=== PATIENT | male | born 1955 | race Hispanic/Latino ===

== ENCOUNTER 2016-11-25 09:30 | Emergency (ER) | payer OTHER ==
[2016-11-25 09:33] VITALS: BMI 30.2
[2016-11-25 09:37] VITALS: RESP 18; TEMP 97.6
--- NOTE | 2016-11-25 09:50 | ED PDOC ---
Arrival/HPI - General Historian: Patient - History of Present Illness Symptom Onset: Gradual Symptom Course: Worsening Quality: Stabbing Activities at Onset: Rest <Lora Suresh - Last Filed: 11/25/16 11:21> <Grant Nunez - Last Filed: 11/25/16 11:37> - General Chief Complaint: Back Pain Time Seen by Provider: 11/25/16 09:49 - History of Present Illness Narrative History of Present Illness (Text): 11/25/16 09:52 61 yo M w h/o right-sided obstructive uropathy February 2013, CAD s/p stent on plavix, HTN, HLD presents with worsening 2 week h/o R flank pain initially started in lower thoracics now radiating to RLQ. Patient admits to stabbing, 6/ 10 intermittent right mid-back pain onset 2 weeks ago patient initially thought was a pulled muscle. For the past 2 days, patient has been experiencing radiation of the pain into the right pelvis/RLQ. Movement and straight posturing worsens the pain. Patient tried Motrin at home with minimal pain relief. Denies hematuria, dysuria, difficulty urinating, n/v/d/c, fevers, chills , CP, SOB, rashes, edema. (Lora Suresh) Past Medical History - Provider Review Nursing Documentation Reviewed: Yes - Travel History Have you recently traveled outside [place] w/in the past 3 mons?: No - Past History Past History: No Previous - Infectious Disease Hx of Infectious Diseases: None - Cardiac Hx [place]: Yes Hx Hypertension: Yes Other/Comment: cardiac stent 1 - Pulmonary Hx Respiratory Disorders: Yes Other/Comment: SLEEP APNEA - Neurological Hx Neurological Disorder: No - HEENT Hx HEENT Disorder: No - Renal Hx Renal Disorder: No - Endocrine/Metabolic Hx Endocrine Disorders: No - Hematological/Oncological Hx Blood Disorders: No - Integumentary Hx Dermatological Disorder: No - Musculoskeletal/Rheumatological Hx Falls: No Hx Gout: Yes - Gastrointestinal Hx Gastrointestinal Disorders: No - Genitourinary/Gynecological Hx Genitourinary Disorders: No - Psychiatric Hx Substance Use: No - Surgical History Hx Cardiac Catheterization: Yes Hx Coronary Stent: Yes (2) - Anesthesia Hx Anesthesia: Yes Hx Anesthesia Reactions: No Hx Malignant Hyperthermia: No - Suicidal Assessment Feels Threatened In Home Enviroment: No <Lora Suresh - Last Filed: 11/25/16 11:21> Family/Social History - Physician Review Nursing Documentation Reviewed: Yes Family/Social History: Hypertension Smoking Status: Never Smoked Hx Alcohol Use: No (wine occassionally) Hx Substance Use: No Hx Substance Use Treatment: No <GilbertellaLora - Last Filed: 11/25/16 11:21> Allergies/Home Meds <GilbertkirajamshidLora - Last Filed: 11/25/16 11:21> <Grant Nunez - Last Filed: 11/25/16 11:37> Allergies/Adverse Reactions: Allergies No Known Allergies Allergy (Verified 08/22/16 08:45) Home Medications: Home Meds Medication Instructions Recorded Confirmed Lisinopril/Hydrochlorothiazide 1 tab PO DAILY 07/12/14 11/25/16 [Lisinopril-Hctz 20-25 mg Tab] Aspirin [Ecotrin] 81 mg PO DAILY 08/22/16 11/25/16 Atorvastatin [Lipitor] 20 mg PO DAILY 08/22/16 11/25/16 Clopidogrel [Plavix] 75 mg PO DAILY 08/22/16 11/25/16 Metoprolol Tartrate [Lopressor] 25 mg PO DAILY 08/22/16 11/25/16 Allopurinol [Zyloprim] 300 mg PO DAILY 11/25/16 11/25/16 Colchicine [Colcrys] 0.6 mg PO DAILY 11/25/16 11/25/16 Review of Systems - Physician Review All systems were reviewed & negative as marked: Yes - Review of Systems Constitutional: Normal. absent: Fatigue, Fevers Eyes: absent: Vision Changes, Photophobia ENT: Normal Respiratory: absent: SOB, Cough, Sputum Cardiovascular: Normal. absent: Chest Pain, Palpitations, Edema, Calf Pain, MOORE Gastrointestinal: Abdominal Pain (RLQ into right pelvis). absent: Constipation , Diarrhea, Nausea, Vomiting, Appetite Changes, Hematochezia, Hematemesis Genitourinary Male: absent: Dysuria, Frequency, Hematuria, Urinary Output Changes Musculoskeletal: Back Pain (right mid-back ). absent: Neck Pain Skin: absent: Rash, Skin Lesions Neurological: absent: Headache, Dizziness Endocrine: absent: Diaphoresis, Polyuria Psychiatric: absent: Anxiety, Depression <Lora Suresh - Last Filed: 11/25/16 11:21> Physical Exam Vital Signs Reviewed: Yes Temperature: Afebrile Blood Pressure: Hypertensive Pulse: Regular Respiratory Rate: Normal Appearance: Positive for: Well-Appearing, Non-Toxic, Uncomfortable Pain Distress: None Mental Status: Positive for: Alert and Oriented X 3 - Systems Exam Head: Present: Atraumatic, Normocephalic Pupils: Present: PERRL Extroacular Muscles: Present: EOMI Conjunctiva: Present: Normal. No: Injected, Icteric Ears: Present: Normal Mouth: Present: Moist Mucous Membranes Nose (External): Present: Atraumatic Nose (Internal): Present: Normal Inspection Neck: Present: Normal Range of Motion. No: Meningeal Signs, JVD Respiratory/Chest: Present: Clear to Auscultation, Good Air Exchange. No: Respiratory Distress, Accessory Muscle Use, Wheezes, Rales, Rhonchi Cardiovascular: Present: Regular Rate and Rhythm, Normal S1, S2. No: Murmurs Abdomen: Present: Tenderness. No: Distention, Normal Bowel Sounds, Peritoneal Signs, Rebound, Guarding Back: Present: Other (right lower thoracics musle spasm). No: CVA Tenderness, Paraspinal Tenderness Upper Extremity: Present: Normal Inspection. No: Cyanosis, Edema Lower Extremity: Present: Normal Inspection. No: Edema, CALF TENDERNESS Neurological: Present: GCS=15, CN II-XII Intact, Speech Normal Skin: Present: Warm, Normal Color. No: Rashes Psychiatric: Present: Alert, Oriented x 3, Normal Insight, Normal Concentration <Lora Suresh - Last Filed: 11/25/16 11:21> Vital Signs Temp Pulse Resp BP Pulse Ox 11/25/16 11:03 57 L 18 122/79 96 11/25/16 09:31 97.6 F 69 18 150/101 H 99 Medical Decision Making Re-evaluation Time: 11:18 Reassessment Condition: Re-examined, Improved - EKG Interpretation Interpreted by ED Physician: Yes <Lora Suresh - Last Filed: 11/25/16 11:21> <Grant Nunez - Last Filed: 11/25/16 11:37> ED Course and Treatment: 11/25/16 10:30 61 yo M w h/o HTN, HLD, CAD, nephrolithiasis presents with right flank pain radiating into right pelvis. IVF, toradol, CT A/P without contrast to r/o pyelo vs nephrolithiasis, NS bolus, NS @100cc/hr. Labs, UA and culture sent. 11/25/16 10:48 K 3.3. 20meq KCl PO x1. 11/25/16 11:16 Patient re-examined. States he feels a little better but still has right mid- back pain. 4mg IV morphine x1. IVF running. BP improved, 122/79. 11/25/16 11:23 CT findings discussed with patient. Patient states he feels much better, pain imporved. All questions answered. chano Castro, instructed to f/u with PMD and urology. (Lora Suresh) A 61 year old male with right flank pain. In agreement with resident note, which includes further HPI details. Patient was seen and evaluated with resident , came up with plan and treatment together. EKG shows NSR at [address]-segment elevations, normal intervals. Interpreted by me. 11/25/16 11:[address] negative for obstructing stones. Most likely either a recently passed stone or muscleskeletal. Patient will f/u with his primary care doctor and a urologist Dr. Seth. Advised to return to the ED with any worsening symptoms or concerns. (Grant Nunez) - Lab Interpretations Lab Results: 11/25/16 10:27 11/25/16 10:27 Lab Results 11/25/16 10:27: WBC 5.1, RBC 4.96, Hgb 15.6, Hct 43.3, MCV 87.3, MCH 31.5, MCHC 36.0, RDW 13.9, Plt Count 282, MPV 9.9, Gran % 40.5 L, Lymph % (Auto) 51.7 H, Nolan % (Auto) 6.0, Eos % (Auto) 0.4 L, Baso % (Auto) 1.4, Gran # 2.08, Lymph # 2.7, Nolan # 0.3, Eos # 0.0, Baso # 0.07, Sodium 139, Potassium 3.3 L, Chloride 99, Carbon Dioxide 29, Anion Gap 14, BUN 23 H, Creatinine 1.0, Est GFR ( Amer) > 60, Est GFR (Non-Af Amer) > 60, Random Glucose 94, Calcium 9.8, Total Bilirubin 1.0, AST 47, ALT 56, Alkaline Phosphatase 53, Total Protein 8.4 H, Albumin 4.7, Globulin 3.6, Albumin/Globulin Ratio 1.3, Urine Color Yellow, Urine Appearance Clear, Urine pH 5.5, Ur Specific [place] 1.020, Urine Protein Negative, Urine Glucose (UA) Negative, Urine Ketones Negative, Urine Blood Negative, Urine Nitrate Negative, Urine Bilirubin Negative, Urine Urobilinogen 0.2, Ur Leukocyte Esterase Negative - RAD Interpretation Narrative RAD Interpretations (Text): 11/25/16 11:21 CT A/P without contrast shows multiple tiny BL nonobstructing renal calculi. Largest calculus lower pole right kidney measures 4mm. The remaining calculi measure 2-3mm. No hydronephrosis. No renal mass. (Lora Suresh) Radiology Orders: 11/25/16 10:11 ABD & PELVIS W/O PO OR IV CONT [CT] Stat - EKG Interpretation EKG Interpretation (Text): 11/25/16 09:50 NSR 67 bpm, no ST/T wave abnormalities, no interval delays. (Lora Suresh) - Medication Orders Current Medication Orders: Sodium Chloride (Sodium Chloride 0.9%) 1,000 mls @ 100 mls/hr IV .Q10H PEBBLES Discontinued Medications Sodium Chloride (Sodium Chloride 0.9%) 1,000 mls @ 999 mls/hr IV .Q1H1M STA Stop: 11/25/16 11:10 Last Admin: 11/25/16 10:29 Dose: 999 MLS/HR eMAR Start Stop Document 11/25/16 10:29 [facility] (Rec: 11/25/16 10:29 [facility] [id number]) Intravenous Solution Start Date 11/25/16 Start Time 10:15 Ketorolac Tromethamine (Toradol) 30 mg IVP STAT STA Stop: 11/25/16 10:11 Last Admin: 11/25/16 10:26 Dose: 30 MG IVP Administration Document 11/25/16 10:26 [facility] (Rec: 11/25/16 10:30 [id number] Charges for Administration # of IVP Administrations 1 Morphine Sulfate (Morphine) 4 mg IVP STAT STA Stop: 11/25/16 11:15 Potassium Chloride (K-Dur 20 Meq Er Tab) 40 meq PO STAT STA Stop: 11/25/16 10:49 <GilbertkiraLora breen - Last Filed: 11/25/16 11:21> - PA / TECHNOLOGY ADOPTION MANAGER / Resident Statement / has reviewed & agrees with the documentation as recorded. MD/DO has examined the patient and agrees with the treatment plan. - Scribe Statement The provider has reviewed the documentation as recorded by the Scribe <Grant Nunez - Last Filed: 11/25/16 11:37> - Scribe Statement Nyla Pantoja Provider Scribe Attestation: All medical record entries made by the Scribe were at my direction and personally dictated by me. I have reviewed the chart and agree that the record accurately reflects my personal performance of the history, physical exam, medical decision making, and the department course for this patient. I have also personally directed, reviewed, and agree with the discharge instructions and disposition. (Grant Nunez) Disposition/Present on Arrival - Present on Arrival Any Indicators Present on Arrival: No History of DVT/PE: No History of Uncontrolled Diabetes: No Urinary Catheter: No History of Decub. Ulcer: No History Surgical Site Infection Following: None - Disposition Have Diagnosis and Disposition been Completed?: Yes Disposition Time: 11:25 Patient Plan: Discharge <GilbertellaLora - Last Filed: 11/25/16 11:21> - Present on Arrival Any Indicators Present on Arrival: No - Disposition Have Diagnosis and Disposition been Completed?: Yes Patient Plan: Discharge <Grant Nunez - Last Filed: 11/25/16 11:37> - Disposition Diagnosis: Muscle spasm, Nephrolithiasis Patient Problems: Current Active Problems Problem Status Diagnosed Muscle spasm Acute Nephrolithiasis Acute Condition: IMPROVED Discharge Instructions (ExitCare): Kidney Stones (ED), Muscle Spasm (ED) Print Language: LATVIAN Additional Instructions: Mr Cannon, thank you for letting us take care of you today. Your provider was Dr. Nunez. You were treated for Muscle Spasm, Kidney Stones. The emergency medical care you received today was directed at your acute symptoms. If you were prescribed any medication, please fill it and take as directed. It may take several days for your symptoms to resolve. Return to the Emergency Department if your symptoms worsen, do not improve, or if you have any other problems. Please contact your doctor or call one of the physicians/clinics you have been referred to that are listed on the Patient Visit Information form that is included in your discharge packet. Bring any paperwork you were given at discharge with you along with any medications you are taking to your follow up visit. Our treatment cannot replace ongoing medical care by a primary care provider (PCP) outside of the emergency department. Thank you for allowing the [facility] team to be part of your care today. If you had an X-Ray or CT scan: A Radiologist will review the ED reading if any change in treatment is needed we will contact you. If you had a blood, urine, or wound culture: It will take several days for the results, if any change in treatment is needed we will contact you. If you had an STI test: It will take 48 hours for the results. Please call after 1 week if you have not heard back. Please followup with your primary care physician within 1-3 days. Please followup with urology (Dr. Seth) within 3-5 days. Prescriptions: Cyclobenzaprine [Cyclobenzaprine HCl] 10 mg PO Q12 PRN #20 tab PRN Reason: Muscle Spasm Ibuprofen [Motrin Tab] 800 mg PO Q12 PRN #30 tab PRN Reason: Pain, Moderate (4-7) Referrals: Maxwell Seth MD [Staff Provider] - Follow up with primary [facility] [place] [Outside] - Follow up with primary
[2016-11-25] MEDS ORDERED: Sodium Chloride 0.9% 1,000 ML IV STA (10:10)
[2016-11-25] MEDS ORDERED: Sodium Chloride 0.9% 1,000 ML IV SCH (10:15)
[2016-11-25 10:30] LABS: ADD MANUAL DIFF? NO
[2016-11-25 10:45] LABS: ALB/GLOB RATIO 1.3 (1.1-1.8); ALKALINE PHOSPHATASE 53 U/L (38-133); ALT/SGPT 56 U/L (7-56); AST/SGOT 47 U/L (15-59); BLOOD UREA NITROGEN 23 mg/dL (7-21); CALCIUM 9.8 mg/dL (8.4-10.5); CARBON DIOXIDE 29 mmol/L (21-33); CHLORIDE 99 mmol/L (98-107); GFR AFRICAN-AMERICAN > 60; GLUCOSE,RANDOM 94 mg/dL (70-110); POTASSIUM 3.3 mmol/L (3.6-5.0); SODIUM 139 mmol/L (132-148); TOTAL PROTEIN 8.4 g/dL (5.8-8.3)
[2016-11-25] MEDS ORDERED: Potassium Chloride 20 mEq ER Tab PO STA ×2 (10:47→10:48)
[2016-11-25 11:04] VITALS: BP 122/79; PULSE 57; O2SAT 96
[2016-11-25 11:05] LABS: BASO # 0.07 K/mm3 (0.0-2.0); BASO % 1.4 % (0.0-3.0); EOS % 0.4 % (1.5-5.0); GRAN # 2.08 (1.4-6.5); GRAN % 40.5 % (50.0-68.0); HEMATOCRIT 43.3 % (42.0-52.0); LYMPH # 2.7 (1.2-3.4); LYMPH % 51.7 % (22.0-35.0); MEAN CELL VOLUME 87.3 fL (80.0-105.0); MEAN CORPUSCULAR HEMOGLOBIN 31.5 pg (25.0-35.0); MEAN PLATELET VOLUME 9.9 fl (7.0-11.0); MONO # 0.3 (0.1-0.6); PLATELET COUNT 282 10^3/uL (120.0-450.0); RED CELL DISTRIBUTION WIDTH 13.9 % (11.5-14.5); WHITE BLOOD COUNT 5.1 10^3/ul (4.5-11.0)
[2016-11-25 11:06] LABS: PH,URINE 5.5 (4.7-8.0); URINE BILIRUBIN NEGATIVE (NEGATIVE); URINE BLOOD NEGATIVE (NEGATIVE); URINE GLUCOSE (UA) NEGATIVE (NEGATIVE); URINE KETONE NEGATIVE (NEGATIVE); URINE LEUKOCYTE ESTERASE NEGATIVE Leu/uL (NEGATIVE); URINE PROTEIN NEGATIVE mg/dL (<30 mg/dL); URINE UROBILINOGEN 0.2 E.U./dL (<1 E.U./dL)
[2016-11-25] MEDS ORDERED: Morphine 4 mg/ml ISec IVP STA (11:14)
--- NOTE | 2016-11-25 11:15 | CT ---
PROCEDURE: CT Abdomen and Pelvis without intravenous contrast HISTORY: flank pain, r/o nephrolithiasis, pyelo COMPARISON: 02/23/2013 TECHNIQUE: Without contrast.. Contrast Dose: 0 Radiation dose: Total exam DLP = 633.29 mGy-cm. This CT exam was performed using one or more of the following dose reduction techniques: Automated exposure control, adjustment of the mA and/or kV according to patient size, and/or use of iterative reconstruction technique. FINDINGS: LOWER THORAX: Unremarkable. LIVER: Normal size. Mild diffusely diminished attenuation consistent with hepatic steatosis. No mass. No biliary GALLBLADDER AND BILE DUCTS: Dilatation. PANCREAS: Unremarkable. No gross lesion or ductal dilatation. SPLEEN: Unremarkable. ADRENALS: Unremarkable. No mass. KIDNEYS AND URETERS: Multiple tiny bilateral nonobstructing renal calculi. Largest calculus lower pole right kidney measures 4 mm. The remaining calculi measure 2-3 mm. No hydronephrosis. No renal mass. VASCULATURE: Unremarkable. No aortic aneurysm. BOWEL: Unremarkable. No obstruction. No gross mural thickening. APPENDIX: Unremarkable. Normal appendix. PERITONEUM: Unremarkable. No free fluid. No free air. LYMPH NODES: Unremarkable. No enlarged lymph nodes. BLADDER: Unremarkable. REPRODUCTIVE: Normal prostate BONES: No acute fracture. OTHER FINDINGS: None. IMPRESSION: Multiple small nonobstructing bilateral renal calculi. No evidence of urinary tract obstruction. Hepatic steatosis. dental the to a should aunt but full about never tilted to for spines though. I told without overt filled intubated heads patient's head is in of baclofen nursing patient remained distal to again normal angle inner either at or in the 0 abut shut in
[2016-11-25 11:33] LABS: URINE APPEARANCE CLEAR (CLEAR); URINE COLOR YELLOW (YELLOW)
--- NOTE | 2016-11-26 11:12 | CARD ---
APPROVED REPORT EKG Measurement Heart [id number] <Conclusion> Normal sinus rhythm Normal ECG
== END 2016-11-25 12:53 | disposition home or self-care (01) ==
LOC: ED 09:30
DX: N20.0 Calculus of kidney (principal); M62.838 Other muscle spasm
CPT/HCPCS: 74176; 80053; 81003; 85025; 87086; 93005; 96374; 96375; 99283; J1885; J2270; J7040